=== PATIENT | female | born 1975 | race Caucasian/White ===

== ENCOUNTER → 2020-11-28 13:17 | Outpatient (CLI) | payer MEDICARE, MEDICAID, SELFPAY ==
[2020-11-28 14:18] LABS: COVID19 -Nasal RAPID Negative (Negative)
== END ==
PROVIDERS: Visit Provider Nurse Practitioner
DX: Z01.812 Encounter for preprocedural laboratory examination (principal); Z20.822 Contact with and (suspected) exposure to COVID-19
CPT/HCPCS: 87635

== ENCOUNTER 2020-11-30 07:30 | Inpatient (IN) | payer MEDICARE, MEDICAID, SELFPAY ==
[2020-11-30] VITALS (18 sets, daily range): BP systolic 106–139; BP diastolic 41–102; PULSE 70–111; RESP 10–18; TEMP 35.3–36.6; O2SAT 91–98; BMI 35.6
--- NOTE | 2020-11-30 | DI.RAD.S_ITS ---
PROCEDURE: XR LUMBAR SPINE 2-3V INDICATIONS: L4-S1 TLIF TECHNIQUE: 3 views of the lumbar spine were acquired. COMPARISON: [facility], , MR LUMBAR SPINE WITHOUT CONTRAST, 07/08/2020, 10:45. FINDINGS: Intraoperative images demonstrate posterior fusion from L4 through S1. Intervertebral spacers are present. There is good anatomic alignment. IMPRESSION: Intraoperative fusion as above. Dictated by: Joaquina Jennings M.D. on 11/30/2020 at 16:10 Approved by: Joaquina Jennings M.D. on 11/30/2020 at 16:11
[2020-11-30] MEDS: LACTATED RINGERS 1,000 ML 42 ML IV ×2 (07:26→10:26)
[2020-11-30] MEDS: ACETAMINOPHEN 325 MG TABLET 975 MG PO (07:28)
[2020-11-30] MEDS: CLINDAMYCIN 600 MG/50 ML PIGGYBACK 50 MG IV (07:45)
[2020-11-30] MEDS: BUPIVACAINE LIPOSOME 266 MG/20 ML VIAL INJ (08:33)
[2020-11-30] MEDS: BUPIVACAINE 0.5% W/ EPI (PF) 30 ML VIAL INJ (08:38)
--- NOTE | 2020-11-30 11:34 | SUR.OPER ---
Prone on spine table, head in foam head support, padded chest and pelvic supports, gel pad at knees, lower legs supported by pillows; nipples, genitalia and toes free of pressure, arms secured on foam padded arm boards at <90 degrees abduction. Gel pads between bilateral thighs and Kole table. Gel pad between feet. Tape over blanket at thigh secured to table.
--- NOTE | 2020-11-30 11:56 | PM.OP.1 ---
Operative Date/Time/Diagnoses Date of procedure: 11/28/20 Time of procedure: 08:04 Pre-op diagnosis: 1. L4-5, L5-S1 spinal stenosis 2. Hx of L5-S1 laminectomy with epidural scarring and radiculopathy 3. L4-5, L5-S1 spondylosis with radiculopathy Post-op diagnosis: same Procedure & Clinicians Procedure: 1. L4-5, L5-S1 Postero-lateral and posterior interbody fusion 2. L4-5, L5-S1 interbody cage placement. 3. L4-5, L5-S1 decompressive laminectomy with bilateral facetecomies 4. L4-5, L5-S1 Posterior segmental instrumentation 5. [place] of bone marrow from iliac crest 6. Utilization of microsurgical technique and operating microscope Same procedure as scheduled: Yes Indications: Patient has been having chronic back pain and worsening lumbar radiculopathy. Patient failed multiple conservative management with worsening pain weakness and numbness in her lower extremity. Patient has been having difficulty performing activity of daily living. After discussing risks benefits of treatment options, patient elected proceed with surgery. Surgeon: Elaine Zepeda Homeowner Association Manager: Zee Tuttle Click Yes if Unassisted: No Anesthesia Type: General Operative Notes Closure Type: primary Specimen(s): none sent Prosthetic devices, grafts, tissues, transplants, or devices: Globus revolve screws, Rise cages Applied: catheter Estimated Blood Loss (mL): 100 Blood products transfused: none Procedure in detail: Patient was seen in the preoperative area. Risks and benefits of the surgery was discussed with the patient. Informed consent was obtained from the patient and placed in the chart. Surgical site was marked. Patient was taken to the operative room. General anesthesia was administered. Prophylactic antibiotic was given to the patient less than 30 min before the incision was made. Patient was placed into a prone position on the Kole table. Patient's back was then prepped and draped in the sterile fashion. Time-out was performed at this time. Using AP and lateral C-arm imaging the interval between L4-S1 was identified and marked on patient's back. A 2 inch incision 2 in from midline was made on the left side first. The fascia was incised in line with skin incision. Globus MARS retractors was placed inside the incision and docked onto the L4 and L5 lamina. Using microsurgical technique and operating microscope, a L4 and L5 laminectomy and L4-5 L5-S1 facetectomy was performed using a Kerrison rongeur. Patient was found have severe neural foramen stenosis which required a total facetectomy for decompression of her L4 and L5 nerve roots. During the process of decompression more than 75% of bilateral L4-5 L5-S1 facets were removed in order to decompress the spinal canal and the lateral recess. The L4-5 L5-S1 level was grossly unstable after the decompression was completed and requiring the fusion procedure. The disc space at L4-5, L5-S1 was identified. And a total diskectomy was performed at L4-5, L5-S1 level. The endplates were decorticated using a rasp and shaver. The total diskectomy and decortication was performed at L4-5, L5-S1 level in order to to accomplish a L4-5, L5-S1 fusion. The local bone from the laminectomy and facetectomy was saved for local bone grafting. After the total diskectomy and decortication was completed, Trifecta bone graft material was combined with local bone that was harvested earlier. At this time, a separate skin is incision was made over the iliac crest. A Jamshidi needle was inserted into the iliac crest through a separate skin incision. 5 cc of bone marrow aspiration was obtained through the separate skin incision using a Jamshidi needle from the iliac crest. The bone marrow aspiration was combined with local bone and the Trifecta bone grafting material. The bone grafting material was placed into the L4-5, L5-S1 interbody space along with two cages, one expandable cage at each level. The cages were expanded to their maximum height using the torque limiting screwdriver. At this time a mirror image incision was made on the right side. The fascia was incised in line with the skin incision. Globus MARS retractor was inserted and docked onto the L4-5, L5-S1 posterolateral gutter. Using the power drill, posterior-lateral decortication was performed at L4-5, L5-S1 level until bleeding cortical bone was identified. The remaining bone grafting material was placed into the L4-5 L5-S1 posterior lateral gutter he order to accomplish posterolateral fusion at the L4-5 L5-S1 levels. Using the double C-arm technique, pedicle screws were placed into the L4, L5, S1 pedicles bilaterally. This was done by placing the Jamshidi needle into the pedicles, then placing the guidewires over the Jamshidi needle, and finally placing the cannulated screws over the guidewires bilaterally. After the pedicle screws were placed, 2 titanium rods was locked into the heads of the pedicle screws using locking caps and torque limiting screwdriver. Total 6 pedicles screws were placed. After all the hardware was placed, and confirmed with AP and lateral C-arm imaging, the wound was then irrigated with sterile normal saline and packed with Ray-Sneha gauze for 3 min to accomplish hemostasis. After the gauze was removed the deep fascia was closed with #1 Vicryl suture. The subcutaneous layer was closed with 2-0 Vicryl. The skin was closed with skin wanda. Patient tolerated the procedure well. There were no complications. EMG and SSEP was used to monitor patient's neurological status which was stable throughout the entire procedure. Complications: none Post-operative Condition: stable Disposition: PACU Plan for aftercare: Admit to inpatient hospital
[2020-11-30] MEDS: hydrOXYzine 50 MG/ML INJ 25 MG IM (12:05)
[2020-11-30] MEDS: ONDANSETRON 4 MG/2 ML INJ IV (12:05)
[2020-11-30] MEDS: HYDROMORPHONE 2 MG INJ IV ×2 (12:11→12:16)
[2020-11-30] MEDS: OXYCODONE IR 5 MG TABLET PO (12:35)
--- NOTE | 2020-11-30 13:08 | PC.NURSE ---
Day shift: Pt on unit from PACu at approx 1307. Dressing is CDI. Harrison patent and draining clear yellow to gravity. Pt on 2L NC w/ SpO2 of 95%. CMS ok in bLE's. Can wiggle toes and has sensation. Denies any nausea or chest pain. Does report back pain of 7/10. VS WNL. Oriented to room and call light. AGrees to not get OOB w/o help from staff. Tolerating water. Bed alarm on for now. Will continue w/ post-op plan of care.
[2020-11-30] MEDS: HYDROMORPHONE 0.5 MG INJ IV ×2 (13:39→16:41)
[2020-11-30] MEDS: ACETAMINOPHEN 325 MG TABLET 650 MG PO (14:08)
[2020-11-30] MEDS: hydrOXYzine pamoate 25 MG CAPSULE PO (14:08)
[2020-11-30] MEDS: OXYCODONE IR 5 MG TABLET 10 MG PO ×3 (14:09→20:32)
[2020-11-30] MEDS: SODIUM CHLORIDE 0.9% 1,000 ML 100 ML IV (14:18)
--- NOTE | 2020-11-30 14:42 | OT.IPNOTE ---
Checked on pt for OT eval and pt states not ready yet ,still very groggy and in pain, nursing aware. To check on the pt tomorrow for OT eval.
--- NOTE | 2020-11-30 16:21 | PT-IP ANOTE ---
Received PT orders and reviewed chart. OT attempted to see pt at 1430 but she refused due to grogginess and pain. PT attempted at 1615 but pt continued to decline and was too groggy to meaningfully participate. Will contact pt 12/01/20 AM for evaluation.
[2020-11-30] MEDS: CLINDAMYCIN 900 MG/50 ML PIGGYBACK 50 MG IV (16:41)
[2020-11-30] MEDS: DOCUSATE 100 MG CAPSULE PO (20:32)
[2020-11-30] MEDS: SENNOSIDES 8.6 MG TABLET 17.2 MG PO (20:32)
[2020-11-30] MEDS: NAPROXEN 250 MG TABLET 500 MG PO (20:34)
[2020-12-01] MEDS: OXYCODONE IR 5 MG TABLET 10 MG PO ×2 (00:41→03:42)
[2020-12-01] MEDS: HYDROMORPHONE 0.5 MG INJ IV ×2 (00:43→05:04)
[2020-12-01] MEDS: SODIUM CHLORIDE 0.9% 1,000 ML 100 ML IV (00:45)
[2020-12-01] MEDS: CLINDAMYCIN 900 MG/50 ML PIGGYBACK 50 MG IV (00:46)
[2020-12-01 04:45] VITALS: BP 127/83; PULSE 83; RESP 18; TEMP 36.7; O2SAT 99
--- NOTE | 2020-12-01 05:35 | PC.NURSE ---
Pt able to wiggle toes, reports numbness up legs to buttocks at time of initial assessment.
[2020-12-01 05:59] LABS: Hematocrit 34.8 % (36-46); Hemoglobin 11.4 g/dL (12.0-16.0)
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
[2020-12-01] MEDS: DULOXETINE 30 MG CAPSULE 90 MG PO (07:52)
[2020-12-01] MEDS: DEXAMETHASONE 10 MG/ML VIAL IV (07:52)
[2020-12-01] MEDS: OXYCODONE IR 5 MG TABLET 15 MG PO ×5 (07:52→20:47)
[2020-12-01] MEDS: DOCUSATE 100 MG CAPSULE PO ×2 (07:52→20:47)
[2020-12-01] MEDS: NAPROXEN 250 MG TABLET 500 MG PO ×2 (07:53→20:47)
[2020-12-01 08:37] VITALS: BP 125/77; PULSE 86; RESP 16; TEMP 36.8; O2SAT 97
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
[2020-12-01 10:04] VITALS: O2SAT 97
[2020-12-01 11:03] VITALS: BP 108/66; PULSE 70; RESP 14; TEMP 37; O2SAT 96
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
--- NOTE | 2020-12-01 13:07 | PT.IPTN ---
Current Diagnoses Other spondylosis with radiculopathy, lumbosacral region (11/30/20) Spinal stenosis, lumbar region with neurogenic claudication (11/30/20) Other specified postprocedural states (11/30/20) Surgery Performed Operation Date: 11/30/20 07:45 Actual Procedures p L4-5, L5-S1 TLIF w. posterior instrumentation - Elaine Zepeda MD Physical Therapy Treatment Note M2 PT-IP Current Condition Start: 11/30/20 15:10 Freq: NEEDED Status: Active Protocol: Document 12/01/20 09:29 AW (Rec: 12/01/20 12:15 AW [id number]) Physical Therapy Current Condition Current Condition Evaluation Date 12/01/20 Treatment Diagnosis L4-5 L5-S1 TLIF; difficulty in walking Onset Date 11/30/20 Precautions Lumbar Precautions Log Roll,No Twisting,Limit Bending,Lifting Restriction of 10 lbs,Gait Belt above Incisional Area Other Precautions falls M3 PT-IP Subjective Start: 11/30/20 15:10 Freq: NEEDED Status: Active Protocol: Document 12/01/20 13:07 AB (Rec: 12/01/20 13:59 AB [id number]) Subjective Physical Therapy Visit Type Type Treatment Note Visit Start Time 13:07 Visit Stop Time 13:32 Total Visit Minutes 25 Number of CONCRETE PANEL INSTALLER Visits 0 Physical Therapy Visit Comments Patient Comments pt is agreeable to do PT Therapy Pain Assessment Pain When Pain Assessed At Rest Pain Present Pain Present Pain Reported Location back Intensity 6 Scale Used increases with mobility Pain Management Techniques Distraction,Modification of Treatment,Re-positioning, Timing of Activity with Medications M4 PT-IP Mobility and Gait Start: 11/30/20 15:10 Freq: NEEDED Status: Active Protocol: Document 12/01/20 13:07 AB (Rec: 12/01/20 13:59 AB [id number]) PT-Bed Mobility Assessment Supine to Sit Supine to Sit Maximum Assistance,1 Person Assistance Sit to Supine Sit to Supine Moderate Assistance,1 Person Assistance Scooting Scooting to Edge of Bed Dependent PT-Transfer Assessment Sit to and From Stand Sit to and from Stand Minimal Assistance,Use of Upper Extremities Equipment Transfer Assistive Device Gait Belt Orthotic/Prosthetic Devices or Brace: No Comments Mobility Comments supine in bed. reviewd back precautions and pt requires cues to recall. stated that she has been doing log roll bed mobility even before surgery. completed supine to sit using bed rail max A and max cues. c/o increase back pain and required increase rest breaks in between tasks. pt was unable to scoot to EOB and stated that she needs assistance and is dependent to scoot to EOB. completed sit to stand min to mod A and cues and ambulated in room ~ 10 ft and has to go back to bed due to c/o back pain. offered caregiver training with pt but pt declined. stated that she lives in [place] and that there is not just one person that will assist her. also stated that she had previous back surgeries and family knows how to assist her. pt also stated that she has a 4WW to use at home and not a FWW. informed pt regarding FWW use at this time. informed pt regarding options: borrow or purchase. pt is concerned about insurance coverage for FWW. Gait Assessment Gait Gait Assistance Required: Minimum Assistance,Moderate Assistance,1 Person Assist Distance (Feet) 10 Able to Maintain Weight Bearing Status Yes During Gait Assistive Devices Assistive Device Gait Belt,Front Wheeled Walker Orthotic/Prosthetic Devices or Brace: No Gait Deviations General Gait Pattern Antalgic,Decreased Stride Length,Decreased Feet Clearance Factors Limiting Gait Function Factors Limiting Gait Function Decreased Activity Tolerance, Decreased Strength,Difficulty Following Directions,Limited Range of Motion,Pain,Poor Balance,Poor Safety Awareness M5 PT-IP Objective Assessments Start: 11/30/20 15:10 Freq: NEEDED Status: Active Protocol: Document 12/01/20 09:29 AW (Rec: 12/01/20 12:15 AW [id number]) Orientation Orientation/Cognition Level of Alertness Alert Orientation Name,Day of Week,Place, Situation Language Function Ability No Deficits Noted Safety Awareness Understands Safety Issues Gross Range of Motion Lower Extremity ROM Assessment Within Functional Limits Strength Lower Extremity Strength Assessment Bilaterally Impaired Hip 4-/5 Knee R 3+/5; L 4/5 Sensation Assessment Sensation Gross Sensation Right LE Impaired,Left LE Impaired Light Touch Impaired Proprioception (Position) Impaired Sensation Description Numbness Comments Sensation Comments Pt reports new onset R thigh numbness and right knee weakness following surgery. She is typically more numb on the LLE but is now experiencing LLE numbness only at the dorsal foot. Muscle Tone Muscle Tone WNL Yes M6 PT-IP Treatment Start: 11/30/20 15:10 Freq: NEEDED Status: Active Protocol: Document 12/01/20 13:07 AB (Rec: 12/01/20 13:59 AB [id number]) Physical Therapy Treatment Education Education Provided Precautions,Safety M7 PT-IP Assessment and Plan Start: 11/30/20 15:10 Freq: NEEDED Status: Active Protocol: Document 12/01/20 13:07 AB (Rec: 12/01/20 13:59 AB [id number]) PT Summary Assessment and Plan Potential Rehabilitation Potential Fair Summary Impairments Pain,ROM,Strength,Balance, Coordination,Sensation,Tone, Cognition,Bed Mobility, Transfers,Gait,Activity Tolerance Progress Towards Goals Slow Progress due to Pain Assessment Summary pt requiring mod to max A with bed mobility and unable to ambulate much. pt refused to have caregiver training done and does not have a FWW at this time. informed pt regarding obtaining a FWW and pt knows her options on how to get one. pt needs to be able to mobilize better that current level and has to be able to tolerate more activity and be able to do stair climbing prior to d/c. d/c plan depending on progress but may require SNF rehab at this time. will continue to assess progress. Goals Bed Mobility Goal Standby Assistance Transfer Goal Standby Assistance,Front Wheeled Walker Gait Goal Standby Assistance,Front Wheel Walker Gait Distance 200 Other Goals - up/down 2 steps BALANCER/CGA - up/down 3 steps with B rails CGA - progress gait to 100 feet with SPC if safe Days to Meet Goals 5 Frequency of Treatment Frequency Of Treatment Twice a Day Treatment Plan Physical Therapy Treatment Plan Bed Mobility Training,Transfer Training,Gait Training, Therapeutic Exercise,Balance Retraining,Post Op Education, Discharge Planning,Hot or Cold Pack,Neuromuscular Re-ed Other Recommendations and Next Treatment ambulation, stair climbing Focus training, caregiver training Recommendations To Nursing Amount of Assist Needed 1 Person Assist Discharge Recommendations PT Discharge Recommendations Home with 24/7 Assist Available,Home Health,SNF Rehab Other Discharge Recommendations depending on progress: SNF vs home with 24/7 assist and HHPT Equipment Needed for Home Before FWW Discharge Transportation Needs at Discharge Private Vehicle,Wheelchair/ Cabulance
[2020-12-01] MEDS: dexAMETHasone 4 MG TABLET PO ×2 (13:48→18:23)
[2020-12-01 16:00] VITALS: BP 129/79; PULSE 93; RESP 18; TEMP 36.6; O2SAT 94
[2020-12-01 20:44] VITALS: BP 131/78; PULSE 85; RESP 18; TEMP 36.7
[2020-12-01] MEDS: SENNOSIDES 8.6 MG TABLET 17.2 MG PO (20:47)
[2020-12-02] MEDS: hydrOXYzine pamoate 25 MG CAPSULE PO ×2 (00:07→06:52)
[2020-12-02] MEDS: OXYCODONE IR 5 MG TABLET 15 MG PO ×4 (00:07→10:32)
[2020-12-02 00:18] VITALS: BP 115/73; PULSE 95; RESP 18; TEMP 36.4; O2SAT 95
--- NOTE | 2020-12-02 00:26 | PC.NURSE ---
Addendum entered by Debby Maxwell R.N. 12/02/20 06:54: Complains of back pain radiating down both legs right > left; medicated with 15mg Oxycodone + Vistaril. States she does not feel pain is any better since receiving Decadron. Provided with ice pack. Addendum entered by Debby Maxwell R.N. 12/02/20 03:06: Patient called RN to room and found IV pulled out of left hand. Patient states difficulty with starting IV's and prefers to not have new IV put in since expected to discharge later today and is not taking any IV medication. Discussed with coordinator, Lety, and will leave out and until ortho sees her in the morning. Original Note: 0011: patient is alert and oriented. Breath sounds diminished at bases but CTA with RA sat of 95%. HRR. Denies nausea. BT present and states she is passing flatus. Indwelling catheter is patent; urine is clear yellow. Discussion re: catheter removal in a.m. but patient requesting it wait until after therapy. Is able to turn herself in bed. Gait not assessed but patient states she was only able to get out of bed and walk to foot of bed and back to head of bed with therapy. Dressing to back intact with 2 areas of serous shadow drainage noted. States back pain is 8/10 so medicated with Oxycodone + Vistaril and ice pack applied. Has numbness in bilateral anterior thighs but none in feet. Has on calf SCD's and reports previous nurse changed out because patient did not like how foot SCD's were pumping up against her foot and prefers the calf SCD's. Fall risk score is high, patient reports recent fall, and bed alarm is activated.
[2020-12-02 05:00] VITALS: BP 136/82; PULSE 88; RESP 16; TEMP 36.3; O2SAT 98
[2020-12-02] MEDS: dexAMETHasone 4 MG TABLET PO ×2 (06:16)
[2020-12-02 07:21] VITALS: BP 126/72; PULSE 67; RESP 16; TEMP 36.7; O2SAT 98
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
[2020-12-02] MEDS: NAPROXEN 250 MG TABLET 500 MG PO (08:48)
[2020-12-02] MEDS: DOCUSATE 100 MG CAPSULE PO (08:48)
[2020-12-02] MEDS: DULOXETINE 30 MG CAPSULE 90 MG PO (08:48)
--- NOTE | 2020-12-02 09:28 | OT.IP.TRT ---
Current Diagnoses Other spondylosis with radiculopathy, lumbosacral region (11/30/20) Spinal stenosis, lumbar region with neurogenic claudication (11/30/20) Other specified postprocedural states (11/30/20) Surgery Performed Operation Date: 11/30/20 07:45 Actual Procedures p L4-5, L5-S1 TLIF w. posterior instrumentation - Elaine Zepeda MD Occupational Therapy Treatment Note M2 OT-IP Current Condition Start: 12/01/20 10:28 Freq: Status: Active Protocol: Document 12/01/20 10:28 [facility] (Rec: 12/01/20 10:51 [facility] [id number]) Occupational Therapy Current Condition Current Condition Evaluation Date 12/01/20 Treatment Diagnosis S/p L4-5, L5-S1 TLIF with posterior instrumentation Diagnosis Onset Date 11/30/20 Post Operative Precautions Lumbar Precautions Log Roll,No Twisting,Limit Bending,Lifting Restriction of 10 lbs,Gait Belt above Incisional Area M3 OT- IP Subjective and Pain Start: 12/01/20 10:28 Freq: Status: Active Protocol: Document 12/02/20 11:19 [facility] (Rec: 12/02/20 11:26 [facility] [id number]) OT- Subjective Occupational Therapy Visit Type Type Treatment Note Visit Start Time 08:38 Visit Stop Time 09:28 Total Visit Minutes 50 Occupational Therapy Visit Comments Patient Comments Pt wanting to shower. Patient/Caregiver Goals To go home. OT Pain Assessment Pain When Pain Assessed At Rest Pain Present Pain Present Pain Reported Location back Intensity 6 Scale Used Numeric (0 - 10) M4 OT- IP ADL's Start: 12/01/20 10:28 Freq: Status: Active Protocol: Document 12/02/20 11:19 [facility] (Rec: 12/02/20 11:26 [facility] [id number]) OT LMU-Jovr-Ibifade General Evaluation Self-Feeding Ability Independent OT ADL-Grooming General Evaluation Grooming Ability Standby Assistance Areas Needing Assistance Retrieving/Set-up of Grooming Items Comments OT Grooming Comments while standing OT ADL-Oral Care General Eval Oral Care Ability Independent OT ADL-Dressing General Eval Lower Body Dressing Ability Moderate Assistance Comments OT Dressing Comments Assist to get on her slippers. Pt states her family will assist her. OT ADL-Toileting General Evaluation Toileting Ability Standby Assistance Comments OT Toileting Comments Pt able to reach and follow back precautions with good safety. OT ADL-Bathing Bathing Type Bathing Type Shower General Evaluation Bathing Ability Moderate Assistance Areas Needing Assistance Wash/Dry Back,Wash/Dry Lower Extremities Comments OT Bathing Comments Pt looking to get a shower chair and hand held shower spray. Pt needing assist to wash/dry her feet and back. M5 OT- IP IADL's Start: 12/01/20 10:28 Freq: Status: Active Protocol: Document 12/01/20 10:28 [facility] (Rec: 12/01/20 10:51 [facility] [id number]) OT-Instrumental Activities of Daily Living Home Safety Awareness Awareness of Need for Assistance at Home Good Awareness Ability to Problem Solve Emergency Able to Problem Solve Situations Medication Management Medication Management Comments Pt 's family/friends to assist with her needs as needed. Meal Preparation Meal Preparation Caregiver Provides Assist Security Chief Museum Security Chief Museum Caregiver Provides Assist Driving Driving Comments Pt state has not been driving due to her back pain. M6 OT- IP Functional Cognition Start: 12/01/20 10:28 Freq: Status: Active Protocol: Document 12/02/20 11:19 [facility] (Rec: 12/02/20 11:26 [facility] [id number]) Cognitive Factors Limiting Selfcare Function Cognitive Comments Cognitive Assessment Comments No deficits, pt able to folw back precautions with good safety and demonstration for ADL needs. M7 OT- IP Mobility and Balance Start: 12/01/20 10:28 Freq: Status: Active Protocol: Document 12/02/20 11:19 [facility] (Rec: 12/02/20 11:26 [facility] [id number]) OT- Bed Mobility Assessment Rolling Type of Rolling Roll to Left Level of Assistance Standby Assistance OT-Transfer Assessment Sit to and From Stand Sit to and from Stand Standby Assistance Transfers Transfer Ability Standby Assistance,Contact Guard Assistance Technique Transfer Destination Bed,Shower Stall,Toilet Transfer Technique Stand Step Pivot Devices Transfer Assistive Devices Gait Belt,Front Wheeled Walker Comments Mobility Comments CGA when stepping over the threshold of the shower. OT- Gait Assessment Comments Gait Ability Comments SBA with FWW OT- Balance Assessment Sitting Balance and Reactions Static Sitting Balance Ability Normal Dynamic Sitting Balance Ability Normal Standing Balance and Reactions Static Standing Balance Ability Good M8 OT- IP Objective Assessments Start: 12/01/20 10:28 Freq: Status: Active Protocol: Document 12/01/20 10:28 [facility] (Rec: 12/01/20 10:51 [facility] [id number]) OT Gross Range of Motion Upper Extremity Range of Motion Assessment Within Functional Limits OT-Muscle Tone Assessment Muscle Tone WNL Yes M9 OT- IP Assessment and Plan Start: 12/01/20 10:28 Freq: Status: Active Protocol: Document 12/02/20 11:19 [facility] (Rec: 12/02/20 11:26 [facility] [id number]) OT Summary Assessment and Plan Potential Rehabilitation Potential Good Analytic Complexity at Evaluation Low Summary Progress Towards Goals Progressing Toward Goals Assessment Summary Pt much improved with mobility needs and able to tolerate a shower today. Pt has a supportive family to assist her at home. Pt looking to go home with assist. Goals Days to Meet Goals 1 Frequency of Treatment Frequency Of Treatment Once a Day Treatment Plan OT Treatment Plan ADL Training,Functional Mobility,Patient/Family Education,Discharge Planning Discharge Recommendations OT Discharge Recommendations Home with Assistance Home Equipment Needs FWW, shower chair versus tub bench, handheld shower spray, seismograph recorder Transportation Needs at Discharge Private Vehicle
[2020-12-02 11:00] VITALS: BP 127/75; PULSE 66; RESP 16; TEMP 36.7; O2SAT 99
--- NOTE | 2020-12-02 11:18 | PT.IPTN ---
Current Diagnoses Other spondylosis with radiculopathy, lumbosacral region (11/30/20) Spinal stenosis, lumbar region with neurogenic claudication (11/30/20) Other specified postprocedural states (11/30/20) Surgery Performed Operation Date: 11/30/20 07:45 Actual Procedures p L4-5, L5-S1 TLIF w. posterior instrumentation - Elaine Zepeda MD Physical Therapy Treatment Note M2 PT-IP Current Condition Start: 11/30/20 15:10 Freq: NEEDED Status: Discharge Protocol: Document 12/01/20 09:29 [facility] (Rec: 12/01/20 12:15 [facility] [id number]) Physical Therapy Current Condition Current Condition Evaluation Date 12/01/20 Treatment Diagnosis L4-5 L5-S1 TLIF; difficulty in walking Onset Date 11/30/20 Precautions Lumbar Precautions Log Roll,No Twisting,Limit Bending,Lifting Restriction of 10 lbs,Gait Belt above Incisional Area Other Precautions falls M3 PT-IP Subjective Start: 11/30/20 15:10 Freq: NEEDED Status: Discharge Protocol: Document 12/02/20 10:50 [facility] (Rec: 12/02/20 13:55 [facility] [id number]) Subjective Physical Therapy Visit Type Type Treatment Note Visit Start Time 10:50 Visit Stop Time 11:18 Total Visit Minutes 28 Notes YOVANNY Amador provided education and physicial assist needed during tx. Supervised by KYE Amaya. Number of CHEMICAL STRENGTH TESTER Visits 1 Physical Therapy Visit Comments Patient Comments Pt agreeable to working with therapy. Patient Goals Return home with family support at discharge hoping today. Therapy Pain Assessment Pain When Pain Assessed At Rest Pain Present Pain Present Pain Reported Location back Intensity 6 Scale Used increased little during mobility Pain Management Techniques Distraction,Re-positioning, Timing of Activity with Medications M4 PT-IP Mobility and Gait Start: 11/30/20 15:10 Freq: NEEDED Status: Discharge Protocol: Document 12/02/20 10:50 [facility] (Rec: 12/02/20 13:55 [facility] [id number]) PT-Bed Mobility Assessment Rolling Type of Rolling Roll to Left Level of Assist Standby Assistance Supine to Sit Supine to Sit Standby Assistance Sit to Supine Sit to Supine Standby Assistance Scooting Scooting to Edge of Bed Standby Assistance Scooting Up and Down in Bed Standby Assistance PT-Transfer Assessment Sit to and From Stand Sit to and from Stand Contact Guard Assistance,1 Person Assistance,Use of Upper Extremities Equipment Transfer Assistive Device Gait Belt,Front Wheeled Walker Orthotic/Prosthetic Devices or Brace: No Transfers Transfer Destination Bed,Wheelchair Transfer Technique Pt ambulated during FWW Transfer Ability Level of Assist Contact Guard Assistance,1 Person Assistance,Use of Upper Extremities Comments Mobility Comments LR R>sitting>scoot EOB, Sit> stand using BUe WB on bed for self performance and FWW SBA, good recall and demonstration of precautions. Pt ambulated further distance into hallway approx 60 ft using FWW CGA with w/c follow. Wheeled further distance to stairs. Sit>stand using BUE, ascend/ descend 6 stairs returned to w /c, wheeled back to room, ambulated to bed approx 8 ft and sit>supine, center self and scoot up in bed SBA. Pt had call light and all needs in reach. Pt is ok to return home with family to assist her when medically stable. Gait Assessment Gait Gait Assistance Required: Contact Guard Assist,1 Person Assist Distance (Feet) 60 Able to Maintain Weight Bearing Status Yes During Gait Assistive Devices Assistive Device Gait Belt,Front Wheeled Walker Orthotic/Prosthetic Devices or Brace: No Gait Deviations General Gait Pattern Antalgic,Decreased Stride Length,Decreased Feet Clearance Factors Limiting Gait Function Factors Limiting Gait Function Decreased Activity Tolerance, Decreased Strength,Limited Range of Motion,Pain Comments Gait Comments Pt ambulated 60 ft in hallway using FWW CGA and w/c follow secondary to decreased strength and activitiy tolerance, step over step gait . And short distance in room when returned to room. Stair Climbing Assessment Evaluation Level of Assist On Stairs Contact Guard Assistance, Minimal Assistance,Moderate Assistance,2 Person Assistance Devices Stair Climbing Assistive Devices Straight Cane,Left Railing, Right Railing Technique/Endurance Stair Climbing Direction Ascend and Descend Stair Climbing Technique Step to Step Number of Steps Climbed 3 Stair Climbing Set # Repetitions (reps) 2 Comments Stair Climbing Comments Ascended/Descend 3 stairs x2. 1st set BHR Min-Mod A x2 step to patterning to assimulate patio to step to enter house, 2nd set using B SPC CGA step to patterning to assimulate 2 stairs ground to patio w/ no HR, improved decreased physical support at trunk but required CGA and support to stabilize SPC for BUE wB which pt stated will have more than one person at home to assist her. No LOB or trunk deviations. PT-Balance Assessment Sitting Balance and Reactions Static Sitting Balance Ability Normal Dynamic Sitting Balance Ability Normal Standing Balance and Reactions Static Standing Balance Ability Good Dynamic Standing Balance Ability Fair Device Used FWW M5 PT-IP Objective Assessments Start: 11/30/20 15:10 Freq: NEEDED Status: Discharge Protocol: Document 12/01/20 09:29 [facility] (Rec: 12/01/20 12:15 [facility] [id number]) Orientation Orientation/Cognition Level of Alertness Alert Orientation Name,Day of Week,Place, Situation Language Function Ability No Deficits Noted Safety Awareness Understands Safety Issues Gross Range of Motion Lower Extremity ROM Assessment Within Functional Limits Strength Lower Extremity Strength Assessment Bilaterally Impaired Hip 4-/5 Knee R 3+/5; L 4/5 Sensation Assessment Sensation Gross Sensation Right LE Impaired,Left LE Impaired Light Touch Impaired Proprioception (Position) Impaired Sensation Description Numbness Comments Sensation Comments Pt reports new onset R thigh numbness and right knee weakness following surgery. She is typically more numb on the LLE but is now experiencing LLE numbness only at the dorsal foot. Muscle Tone Muscle Tone WNL Yes M6 PT-IP Treatment Start: 11/30/20 15:10 Freq: NEEDED Status: Discharge Protocol: Document 12/02/20 10:50 [facility] (Rec: 12/02/20 13:55 SP [id number]) Physical Therapy Treatment Education Education Provided Precautions,Safety Other Treatments Other Treatment Performed Education provided on core engagement during mobility to provide support and stabilize low back. M7 PT-IP Assessment and Plan Start: 11/30/20 15:10 Freq: NEEDED Status: Discharge Protocol: Document 12/02/20 10:50 SP (Rec: 12/02/20 13:55 SP [id number]) PT Summary Assessment and Plan Potential Rehabilitation Potential Fair Status of Condition at Evaluation Evolving Summary Impairments Pain,ROM,Strength,Balance, Coordination,Sensation,Tone, Cognition,Bed Mobility, Transfers,Gait,Activity Tolerance Progress Towards Goals Slow Progress due to Pain,Slow Progress due to Activity Tolerance Assessment Summary pt requiring SBA and improved in short distance gait approx 60 ft using fWW and w/c follow , ascend/descend 3 stairs x2 BHR and B SPC with CGA support . Pt refused to have caregiver training, many members will be at home to assist her. Pt stated her was able to get a fWW to use at home. Pt is ok to return home with family to assist her when medically stable. Goals Bed Mobility Goal Standby Assistance Transfer Goal Standby Assistance,Front Wheeled Walker Gait Goal Standby Assistance,Front Wheel Walker Gait Distance 200 Other Goals - up/down 2 steps PLAYGROUND WORKER/CGA - up/down 3 steps with B rails CGA - progress gait to 100 feet with SPC if safe Days to Meet Goals 5 Frequency of Treatment Frequency Of Treatment Twice a Day Treatment Plan Physical Therapy Treatment Plan Bed Mobility Training,Transfer Training,Gait Training, Therapeutic Exercise,Balance Retraining,Post Op Education, Discharge Planning,Hot or Cold Pack,Neuromuscular Re-ed Other Recommendations and Next Treatment ambulation, bed mob. Focus Recommendations To Nursing Amount of Assist Needed 1 Person Assist Discharge Recommendations PT Discharge Recommendations Home with 15/05 Assist Available,Home Health Other Discharge Recommendations HHPT Equipment Needed for Home Before was able to get FWW Discharge for home use. Transportation Needs at Discharge Private Vehicle,Wheelchair/ Cabulance
[2020-12-02 11:57] VITALS: O2SAT 97
--- NOTE | 2020-12-02 13:12 | PC.NURSE ---
Pt is dressed and ready for discharge home with Spouse. Pt has showered, IV removed, Harrison removed and has voided at least twice since removal. Went over d/c instructions with Pt-discussed d/c meds, time of last dose, reviewed Back precautions (logroll, NO BLT). Reminded Pt not to drive while on narcotics, drink plenty of fluids to prevent constipation or dehydration, and to follow up as scheduled. Pt denies further questions and was taken out to pov via w/c by OTHER WOOD PROCESSING MACHINE OPERATOR with Spouse and all belongings.
--- NOTE | 2020-12-02 14:07 | CM.DPC ---
DCP Discharge home Per MD, pt is medically stable to d/c home today and no identified barriers to discharge. Per PT/OT, pt made significant progress in ambulation and mobility and recommending safe d/c home with spouse assist and DME. Per RN, no concerns at this time. Plan: Patient to d/c home with spouse assist today and outpt PT and DME for help at home. No SW needs at this time. AILYN Casanova
== END 2020-12-02 13:19 | disposition home or self-care (01) | DRG 455 ==
PROVIDERS: Admitting Provider Orthopaedic Surgery Orthopaedic Surgery of the Spine; PCP Nurse Practitioner Family; Referring Provider Nurse Practitioner Family; Visit Provider Orthopaedic Surgery Orthopaedic Surgery of the Spine
PROC: 0SG00AJ Fusion of Lumbar Vertebral Joint with Interbody Fusion Device, Posterior Approach, Anterior Column, Open Approach (ICD-10-PCS; principal; 2020-11-30 07:45)
DX: M48.062 Spinal stenosis, lumbar region with neurogenic claudication (principal); M47.27 Other spondylosis with radiculopathy, lumbosacral region; F17.210 Nicotine dependence, cigarettes, uncomplicated; M48.07 Spinal stenosis, lumbosacral region; M47.26 Other spondylosis with radiculopathy, lumbar region; Z20.822 Contact with and (suspected) exposure to COVID-19; G89.18 Other acute postprocedural pain
CPT/HCPCS: 36415; 72100; 76000; 82962; 85014; 85018; 87635; 94760; 97116; 97161; 97165; 97530; 97535; C1776; C9803; C9290; J0330; J1100; J1170; J2250; J2405; J2704; J3010; J3410